=== PATIENT | female | born 1940 | race Caucasian/White ===

== ENCOUNTER 2020-08-01 14:01 | Emergency (ER) | payer MEDICARE, OTHER ==
[~2020-08-01 14:01] MED LIST: AMLODIPINE BESYL5 MG PO; CALTRATE 600 +1 EAC1 PO; DESYREL50 MG PO; KEFLEX250 MG PO; LISINOPRIL 20MG20 MG PO; MIRALAX 238GM238 GM PO; PANTOPRAZOLE SO40 MG PO; SIMVASTATIN10 MG PO; TRAMADOL HCL50 MG PO; ZOFRAN4 MG PO
[2020-08-01 16:14] LABS: BASOPHIL 0.2 % (0-2); EOSINOPHIL 0.9 % (0-7); HCT 34.1 % (37.0-47.0); HGB 11.7 g/dl (12.5-16.0); LYMPHOCYTE 3.2 % (15-48); MCH 32.9 pg (25.0-31.0); MCHC 34.3 g/dL (32.0-36.0); MCV 95.8 fL (78.0-100.0); MONOCYTE 3.8 % (0-12); MPV 9.6 fL (6.0-9.5); NEUTROPHIL 91.1 % (41-80); NRBC 0; PLT 316 K/uL (150-400); RBC 3.56 M/uL (4.20-5.40); RDW 12.7 % (11.5-14.0)
[2020-08-01 16:16] LABS: WBC 19.3 K/uL (4.0-10.5)
[2020-08-01 16:33] LABS: ALBUMIN 3.5 g/dL (3.4-5.0); BILIRUBIN - TOTAL 0.6 mg/dL (0.2-1.0); BUN/CREAT RATIO (CALC) 22.4 RATIO; CREATININE 0.58 mg/dL (0.51-0.95); GLOBULIN (CALCULATION) 4.4 g/dL; IRON % SATURATION 5.3 %SAT (20-50); POTASSIUM 3.6 mmol/L (3.5-5.1); TOTAL PROTEIN 7.9 g/dL (6.4-8.2)
[2020-08-01 16:40] LABS: LACTIC ACID 1.4 mmol/L (0.4-1.9)
[2020-08-01 16:45] LABS: INR 1.2 (0.9-1.2); PROTHROMBIN TIME 14.4 SECONDS (11.4-13.6); PTT 36.5 SECONDS (22.2-34.7)
[2020-08-01 17:38] LABS: BILIRUBIN NEGATIVE (NEGATIVE); BLOOD NEGATIVE Ery/uL (NEGATIVE); CLARITY CLEAR (CLEAR); COLOR YELLOW (YELLOW); GLUCOSE (U) NORMAL (NORMAL); LEUKOCYTES NEGATIVE Leu/uL (NEGATIVE); NITRITE NEGATIVE (NEGATIVE); PROTEIN NEGATIVE (NEGATIVE)
== END 2020-08-01 19:10 | disposition other institution (70) ==
LOC: FER 14:01
PROVIDERS: Emergency Medicine
DX: I21.4 Non-ST elevation (NSTEMI) myocardial infarction (principal); R41.82 Altered mental status, unspecified; M62.82 Rhabdomyolysis; I48.91 Unspecified atrial fibrillation; D72.829 Elevated white blood cell count, unspecified; M25.511 Pain in right shoulder; M25.512 Pain in left shoulder; M25.551 Pain in right hip; M25.552 Pain in left hip; I10 Essential (primary) hypertension; M19.90 Unspecified osteoarthritis, unspecified site; Z79.891 Long term (current) use of opiate analgesic; Z20.822 Contact with and (suspected) exposure to COVID-19
CPT/HCPCS: 36415; 70450; 71045; 72170; 80053; 81003; 82550; 83540; 83550; 83605; 83735; 84145; 84484; 85025; 85610; 85730; 87040; 87077; 87088; 93005; 96365; 96372; 96375; J0696; J1650; U0002